=== PATIENT | female | born 1970 | race Caucasian/White ===

== ENCOUNTER 2016-09-13 05:45 | Day surgery (SDC) | payer OTHER ==
[~2016-09-13] VITALS: Ht 167.6 cm; Wt 63.5 kg
[2016-09-13] MEDS ORDERED: CEFAZOLIN SOD 1 GM in D5W 50 ML IV ONE (07:00)
[2016-09-13] MEDS ORDERED: BUPIVACAINE /EPINEPHRINE/PF 0.5% 30 ML VIAL INJ ONE (08:05)
[2016-09-13] MEDS ORDERED: fentaNYL CITRATE/PF 100 MCG/2 ML AMP IVP ONE (08:05)
[2016-09-13] MEDS ORDERED: ROCURONIUM BROMIDE 10 MG/ML (ZEMURON) IV ONE (08:05)
[2016-09-13] MEDS ORDERED: MIDAZOLAM HCL 5 MG/5 ML VIAL IVP ONE (08:05)
[2016-09-13] MEDS ORDERED: ONDANSETRON HCL 4 MG/2 ML VIAL IVP ONE (08:05)
[2016-09-13] MEDS ORDERED: ROPIVACAINE 40 MG/20 ML AMP EP ONE (08:05)
[2016-09-13] MEDS ORDERED: GLYCOPYRROLATE 0.2 MG/ML VIAL IJ ONE (08:05)
[2016-09-13] MEDS ORDERED: NS IRRIG SOLN 1000 ML IR ONE (08:05)
[2016-09-13] MEDS ORDERED: SEVOFLURANE 15 MIN GAS INH ONE (08:05)
[2016-09-13] MEDS ORDERED: KETOROLAC TROMETHAMINE 30 MG VIAL IVP ONE (08:05)
[2016-09-13] MEDS ORDERED: PROPOFOL 200MG/ 20ML VIAL (DIPRIVAN) IV ONE (08:05)
[2016-09-13] MEDS ORDERED: NEOSTIGMINE METHYLSULFATE 1 MG/ML, 10 ML VIAL IVP ONE (08:05)
[2016-09-13] MEDS ORDERED: NS 1000 ML BAG IV ONE (08:05)
[2016-09-13] MEDS ORDERED: LIDOCAINE 1% 10 MG/ML, 20 ML MDV INJ ONE (08:05)
[2016-09-13] MEDS ORDERED: LR 1,000 ML IV.SOLN IV ONE (08:05)
[2016-09-13 08:07] VITALS: O2SAT 98
[2016-09-13] MEDS ORDERED: KETOROLAC TROMETHAMINE 30 MG VIAL IVP PRN (08:30)
[2016-09-13] MEDS ORDERED: ONDANSETRON HCL 4 MG/2 ML VIAL IVP PRN ×2 (08:30→10:00)
[2016-09-13] MEDS ORDERED: MEPERIDINE HCL/PF 25 MG/ML DISP.SYRIN IVP PRN ×2 (08:30)
[2016-09-13] MEDS ORDERED: IBUPROFEN 800 MG TABLET PO PRN (10:00)
[2016-09-13] MEDS ORDERED: OXYCODONE/ACETAMINOPHEN 5-325 TABLET PO PRN ×2 (10:00)
[2016-09-13] MEDS: LR 1,000 ML IV SCH ×2 (11:20→12:50)
[2016-09-13 11:28] VITALS: BP 108/51; PULSE 64; RESP 14
[2016-09-13] MEDS ORDERED: ONDANSETRON HCL 4 MG/2 ML VIAL ONE (11:45)
[2016-09-13] MEDS ORDERED: KETOROLAC TROMETHAMINE 30 MG VIAL ONE (12:09)
[2016-09-13] MEDS ORDERED: OXYCODONE/ACETAMINOPHEN 5-325 TABLET ONE (12:54)
== END 2016-09-13 15:10 | disposition home or self-care (01) ==
LOC: SDS 05:45 → SMU 05:45 → SDS 15:10
PROVIDERS: ATTEND Obstetrics & Gynecology
DX: D25.2 Subserosal leiomyoma of uterus (principal); D25.0 Submucous leiomyoma of uterus; N83.8 Other noninflammatory disorders of ovary, fallopian tube and broad ligament; J20.9 Acute bronchitis, unspecified; F51.02 Adjustment insomnia; M25.50 Pain in unspecified joint; M79.7 Fibromyalgia; B00.9 Herpesviral infection, unspecified; F39 Unspecified mood [affective] disorder; G62.9 Polyneuropathy, unspecified; I73.00 Raynaud's syndrome without gangrene; F32.9 Major depressive disorder, single episode, unspecified; F41.9 Anxiety disorder, unspecified; J45.909 Unspecified asthma, uncomplicated; Z80.1 Family history of malignant neoplasm of trachea, bronchus and lung; Z81.8 Family history of other mental and behavioral disorders; F17.200 Nicotine dependence, unspecified, uncomplicated
CPT/HCPCS: 36415; 58571; 86886; 86900; 86901; 88307; C1727; J0690; J1885; J2001; J2250; J2405; J2704; J2710; J2795; J3010; J3490 ×2; J7030; J7060; J7120

== ENCOUNTER 2016-09-17 10:15 | Observation (INO) | payer OTHER ==
[~2016-09-17] VITALS: Ht 167.6 cm; Wt 54.4 kg
[2016-09-17 10:20] VITALS: BP_SYST 123
--- NOTE | 2016-09-17 10:25 | NUR ---
Pt presents to ER with left flank pain. Pt reports having hysterectomy on Tuesday here with Dr Flores. Pt reports flank pain is now 7/10 and "getting better". Pt took percocet at 0930 this morning. Pt does report frequency but denies hematuria. Pt is A&O x4. Pt is in no acute distress at this time.
--- NOTE | 2016-09-17 10:29 | NUR ---
Pt brought to room 7, report given to Dianna STAFFORD.
--- NOTE | 2016-09-17 10:35 | NUR ---
DR MURPHY AT BEDSIDE FOR EVALUATION
[2016-09-17] MEDS ORDERED: PIPERACILLIN/TAZO 3.38 GM in NS 50 ML IV ONE (10:45)
[2016-09-17] MEDS ORDERED: DIPHENHYDRAMINE INJ 50 MG/ML VIAL IVP ONE (10:45)
[2016-09-17] MEDS ORDERED: MORPHINE 4 MG/ML INJ. SYRINGE IVP ONE (10:45)
[2016-09-17 11:11] LABS: BILIRUBIN,URINE NEGATIVE (NEGATIVE); BLOOD, URINE 2+ (NEGATIVE); CLARITY/URINE CLEAR (CLEAR); COLOR,URINE YELLOW (YELLOW); GLUCOSE,URINE NEGATIVE (NEGATIVE); KETONES,URINE NEGATIVE (NEGATIVE); LEUKOCYTE ESTERASE ,URINE NEGATIVE (NEGATIVE); NITRITE, URINE NEGATIVE (NEGATIVE); PH,URINE 6.5 (5.0-8.0); PROTEIN URINE NEGATIVE (NEGATIVE); UROBILINOGEN,URINE 0.2 (0.2-1.0)
[2016-09-17 11:15] LABS: BASOPHILS # (AUTO) 0.1 K/uL (0.0-0.2); BASOPHILS % (AUTO) 0.7 % (0.0-2.0); EOSINOPHILS # (AUTO) 0.3 K/uL (0.0-0.4); HEMATOCRIT 35.5 % (36-48); HEMOGLOBIN 11.9 g/dL (12.0-16.0); LYMPHOCYTES % (AUTO) 10.4 % (20.5-51.5); MEAN CORPUSCULAR HEMOGLOBIN 31 pg (27-31); MEAN CORPUSCULAR HGB CONC 34 % (32-36); MEAN CORPUSCULAR VOLUME 92 fL (79.0-98.0); MONOCYTES # (AUTO) 1.1 K/uL (0.0-1.0); MONOCYTES % (AUTO) 11.3 % (1.7-9.3); NEUTROPHILS # (AUTO) 7.5 K/uL (1.8-7.7); NEUTROPHILS % (AUTO) 74.6 % (40.0-70.0); PLATELET COUNT (AUTO) 236 K/uL (130-430); RED BLOOD CELL COUNT(AUTO) 3.85 MIL/uL (4.2-6.2)
[2016-09-17 11:18] LABS: BACTERIA,URINE FEW /HPF (None Seen); RBC,URINE 0-3 /HPF (0-3); WBC,URINE 0-3 /HPF (0-3)
[2016-09-17 11:18] LABS: CALCIUM 8.8 mg/dL (8.4-11.0); CREATININE 0.85 mg/dL (0.55-1.30); POTASSIUM 4.3 mmol/L (3.5-5.1)
[2016-09-17 11:19] LABS: MUCUS,URINE None Seen /LPF (None Seen)
[2016-09-17 11:20] LABS: INR 0.9 (0.8-1.2)
[2016-09-17 11:22] LABS: ALBUMIN 3.2 g/dL (3.4-4.8); TOTAL BILIRUBIN 0.4 mg/dL (0.0-1.0); TOTAL PROTEIN, SERUM 6.5 g/dL (6.4-8.3)
[2016-09-17] MEDS ORDERED: PIPERACILLIN/TAZOBACTAM 3.375 GM/VIAL (ZOSYN) IV ONE ×2 (11:25→11:31)
--- NOTE | 2016-09-17 11:37 | NUR ---
Admin meds as ordered. Pt c/o nausea. Sickness bag provided. Made MD aware.
[2016-09-17] MEDS ORDERED: ONDANSETRON HCL 4 MG/2 ML VIAL IVP ONE ×2 (11:45→18:00)
--- NOTE | 2016-09-17 12:49 | NUR ---
DR DUKE AT BEDSIDE TO SEE PT.
--- NOTE | 2016-09-17 13:01 | NUR ---
DR DUKE DONE WITH PT AND LEFT WITHOUT ORDERS BEING PLACED. TY LILLY DIRECTOR OF ER AWARE AND PAGED DR DUKE OVERHEAD IN HOSPITAL, NO CALL BACK.
--- NOTE | 2016-09-17 13:10 | NUR ---
Pt c/o flank pain and requests pain medications. Dr. Roy notified.
--- NOTE | 2016-09-17 13:12 | NUR ---
Consent signed for CT with contrast.
[2016-09-17] MEDS ORDERED: LR 1,000 ML IV ONE (13:15)
[2016-09-17] MEDS ORDERED: HYDROmorphone 1 MG INJ. 1 MG/ML AMPUL IVP ONE (13:15)
[2016-09-17] MEDS ORDERED: HYDROmorphone 2 MG/ML VIAL IVP PRN ×2 (13:15→21:15)
[2016-09-17] MEDS ORDERED: IOHEXOL 100 ML IV ONE (13:21)
--- NOTE | 2016-09-17 14:06 | NUR ---
Call from Dr Shah. Please call MD with the CT scan with contrast results. Also perform an In/Out catheter for Urinalysis not clean catch.
--- NOTE | 2016-09-17 14:20 | NUR ---
Patient will be admitted to care of Dr Mukherjee. Admitted to Med surg unit. Will go to room 135. Belongings list completed. Summary report printed. Report will be given at bedside.
--- NOTE | 2016-09-17 14:24 | NUR ---
ADMISSION: The patient, KACEY ZARATE, 45 y/o, F admitted by BAKARI DUKE MD, was given written information regarding hospital policies, unit procedures and contact persons. Pain tolerable at this time.
[2016-09-17 14:27] VITALS: BP_SYST 107
--- NOTE | 2016-09-17 14:30 | NUR ---
rounds' arrived on the floor with mom and at the bedside, awake alert with ivl on the r ac intact. no infiltration noted. denies pain at this time. no sob noted. assessment done rendered.
--- NOTE | 2016-09-17 14:55 | NUR ---
CALLED ATTENDING MD, DR DUKE, RE: RESULTS OF THE CT OF THE ABD AND PELVIS ON HER CELL PHONE. WAS ASKED TO FAX THE RESULTS
--- NOTE | 2016-09-17 15:00 | NUR ---
rounds in and out cath was done . noted with sediments on her urine collected and sent urine sample to the lab.
[2016-09-17 16:00] VITALS: BP_SYST 112
--- NOTE | 2016-09-17 17:30 | NUR ---
rounds pt's looking for a manager social responsibility re concerns about the sx and sx from last week. nsg supervisor [employer] and [employer] ana maria went to room and spoke with patient.
--- NOTE | 2016-09-17 18:00 | NUR ---
rounds dr huang at bedside and talking to family re sx of dr shama ramachandran.
[2016-09-17] MEDS ORDERED: LR 1,000 ML IV SCH (18:30)
--- NOTE | 2016-09-17 19:00 | NUR ---
closing notes pt was taken to sx via bed with pt' s mom . npo maintained. stable
[2016-09-17] MEDS ORDERED: PROPOFOL 200MG/ 20ML VIAL (DIPRIVAN) IV ONE (19:46)
[2016-09-17] MEDS ORDERED: fentaNYL CITRATE/PF 100 MCG/2 ML AMP IVP ONE (19:46)
[2016-09-17] MEDS ORDERED: METOCLOPRAMIDE HCL 10 MG/2 ML VIAL IVP ONE (19:46)
[2016-09-17] MEDS ORDERED: SEVOFLURANE 15 MIN GAS INH ONE (19:46)
[2016-09-17] MEDS ORDERED: cefTRIAXone 1 GM IVPB PREMIX 50 ML IV ONE (19:46)
[2016-09-17] MEDS ORDERED: cefTRIAXone 1 GM VIAL IV ONE (19:46)
[2016-09-17] MEDS ORDERED: MIDAZOLAM HCL 5 MG/5 ML VIAL IVP ONE (19:46)
[2016-09-17] MEDS ORDERED: DEXAMETHASONE SOD PHOSPHATE 4 MG/ML VIAL IVP ONE (19:46)
[2016-09-17] MEDS ORDERED: ROCURONIUM BROMIDE 10 MG/ML (ZEMURON) IV ONE (19:46)
[2016-09-17] MEDS ORDERED: WATER FOR IRRIGATION,STERILE 3,000 ML IRRIG.SOLN IR ONE (19:46)
[2016-09-17] MEDS ORDERED: IOHEXOL 50 ML IV ONE (20:03)
[2016-09-17] MEDS ORDERED: PROMETHAZINE HCL 25 MG/ML AMP IM PRN ×2 (21:00)
[2016-09-17] MEDS ORDERED: OXYCODONE/ACETAMINOPHEN 5-325 TABLET PO PRN ×2 (21:00)
[2016-09-17] MEDS ORDERED: ONDANSETRON HCL 4 MG/2 ML VIAL IVP PRN (21:00)
--- NOTE | 2016-09-17 21:55 | NUR ---
NOTES; RECEIVED PT FROM OR TO ROOM 123A. PT IS IN BED, A/A/O X4. PT WITH CONTINUOUS COUGH AND C/O THROAT SORENESS. DR. DUKE TO BE NOTIFIED. VITAL SIGNS STABLE. POST-OP VITALS ONGOING. AFEBRILE. ABD SOFT NONDISTENDED WITH ACTIVE BOWEL SOUNDS. ABD IS TENDER TO TOUCH. S/P HYSTERECTOMY PRIOR TO ADMISSION ON 09/13/16. NOTED X3 SMALL ABD INCISION WITH STERI STRIP DRESSING. BLADER NONDISTENDED. RECEIVED PT WITH ONGOING IVF OF LR INFUSING ON THE RT AC, PATENT. NO SIGNS OF INFECTION NOTED ON IV SITE. SCD TO BHUMIKA LOWER EXT. PT DENIES ANY OTHER PAIN AT THIS TIME. INSTRUCTED PT ON THE USE OF CALL LIGHT TO CALL FOR ANY NEED TO ASSIST. PT VERBALIZED UNDERSTANDING. BED LOCKED AND IN LOW POSITION, SIDE RAILS UP X3, CALL LIGHT AND BEDSIDE TABLE WITHIN REACH. BED ALARM ON . ROOM CLOSE TO NURSES STATION.
--- NOTE | 2016-09-17 22:32 | NUR ---
PAGED DR DUKE SPOKE WITH ELLIOTT
--- NOTE | 2016-09-17 22:45 | NUR ---
NOTES; CALLED BACK. SPOKE WITH MD AND INFORMED HER ABOUT PT C/O THROAT SORENESS AND CONTINUOUS COUGHING. PER THE THROAT SORENESS IS EXPECTED DUE TO THE INTUBATION DURING SURGERY AND TO GIVE WARM TEA.
--- NOTE | 2016-09-17 22:50 | NUR ---
NOTES; WARM TEA PROVIDED. PT TOLERATED WELL. NO MORE COUGHING. PER PT, SLIGHT TOLERABLE 2/10 PAIN IN THROAT. VITAL SIGNS STABLE. WILL CONTINUE TO MONITOR.
--- NOTE | 2016-09-17 23:15 | NUR ---
NOTES; ASSISTED TO THE BATHROOM. PT VOIDED FREELY. NOTED A TINGE OF BLOOD IN URINE. ASSISTED BACK TO BED. SAFETY MEASURES IN PROGRESS.
[2016-09-17] MEDS: HYDROmorphone 2 MG TAB PO PRN (23:56)
--- NOTE | 2016-09-17 23:58 | NUR ---
NOTES; DILAUDID 2MG PO ADMINISTERED FOR 7/10 ABDOMINAL AND CRAMPING PAIN.
--- NOTE | 2016-09-18 | NUR ---
NOTES; TRUST ADVISOR ASSISTED PT TO THE BATHROOM. PT VOIDED FREELY. DENIES ANY PAIN AT THIS TIME, SAFETY MEASURES IN PROGRESS WILL CONTINUE TO MONITOR.
[2016-09-18 00:16] VITALS: BP_SYST 108
--- NOTE | 2016-09-18 00:58 | NUR ---
NOTES; PT APPEARED TO BE SLEEPING, EYES CLOSED. RESPIRATION EVEN AND NONLABORED. SAFETY MEASURES IN PROGRESS
--- NOTE | 2016-09-18 02:00 | NUR ---
NOTES; PT IS IN BED SLEEPING, EYES CLOSED. RESPIRATION EVEN AND NONLABORED. AT BEDSIDE WITH GOOD SUPPORT. SAFETY MEASURES IN PROGRESS
--- NOTE | 2016-09-18 03:45 | NUR ---
NOTES; ASSISTED TO THE BATHROOM, VOIDED FREELY. NOTED TING OF BLOOD IN URINE. PT DENIES ANY PAIN AT THIS TIME. ASSISTED BACK TO BED. SAFETY MEASURES IN PROGRESS.
[2016-09-18 04:00] VITALS: BP_SYST 99
[2016-09-18] MEDS: HYDROmorphone 2 MG TAB PO PRN (05:35)
--- NOTE | 2016-09-18 05:36 | NUR ---
NOTES; DILAUDID 2MG PO ADMINISTERED FOR 7/10 ABDOMINAL PAIN.
--- NOTE | 2016-09-18 06:36 | NUR ---
NOTES; PT STATED EFFECTIVE PAIN MEDICATION.
--- NOTE | 2016-09-18 06:40 | NUR ---
NOTES; I S teaching done. Pt demonstrated I S up to 1500cc. Encouraged pt to use i s 10x/hr while awake. Pt verbalized understanding.
[2016-09-18] MEDS ORDERED: OXYCODONE/ACETAMINOPHEN 5-325 TABLET PO PRN ×2 (07:00)
--- NOTE | 2016-09-18 07:07 | NUR ---
NOTES; IN BED, WATCHING TV. NO APPARENT DISTRESS NOTED. GOOD URINE OUTPUT. DENIES ANY PAIN AT THIS TIME. TOLERATING DIET WELL. DENIES ANY NAUSEA OR VOMITING. ALL NEEDS ATTENDED. SAFETY MEASURES IN PROGRESS.
--- NOTE | 2016-09-18 08:00 | NUR ---
AM Initial Notes Pt [id number] with complaints of mild abdominal pain with movement. No distress noted. Abdominal incisions from post hysterectomy on 09/13/2016 covered with steri strips intact. No signs of redness, swelling, erythema or drainage noted. Pt voided with mild pinkish colored urine. No discomfort or pain with urination. Encouraged to use incentive spirometer and walk more. Educated about fall and safety precautions. Encouraged to call for assistance. Call light within reach. Will monitor.
[2016-09-18 08:05] VITALS: BP_SYST 94
--- NOTE | 2016-09-18 08:20 | NUR ---
Dr. Pablo KO called to inform that Dr. Flores will be coming in to do rounds and will discharge patient to home. speaking to patient over the phone.
--- NOTE | 2016-09-18 09:00 | NUR ---
Dr. Mark KO doing rounds and assessed patient. Plan of care discussed.
[2016-09-18] MEDS ORDERED: LR 1,000 ML IV SCH (10:00)
[2016-09-18 10:09] VITALS: BP_SYST 101
--- NOTE | 2016-09-18 10:35 | NUR ---
Discharge Discharge patient with . Transitional care instructions and handout explained and given. Pt verbalized understanding. Vital signs stable: T-97.8, P-68, R-20, BP-101/60, O2 sat-96%. Pt left floor via w/c to private vehicle. No distress noted.
== END 2016-09-18 10:38 | disposition home or self-care (01) ==
LOC: SED 10:15 → INTOOBSV 13:38 → SMU 13:38
PROVIDERS: ADMIT Obstetrics & Gynecology; ATTEND Obstetrics & Gynecology
DX: N13.30 Unspecified hydronephrosis (principal); F32.9 Major depressive disorder, single episode, unspecified; F41.9 Anxiety disorder, unspecified
CPT/HCPCS: 36415; 52005; 52332; 74176; 74177; 76000; 80053; 81000; 83605; 83690; 85025; 85610; 86886; 86900; 86901; 87040; 87081; 96365; 96375 ×2; 96376; 99285; C1758; C1769; C2625; G0378 ×2; J0696; J1100; J1170 ×2; J1200; J2250; J2270; J2405; J2543; J2704; J2765; J3010; J7120 ×2; Q9967 ×2